=== PATIENT | female | born 1985 | race Asian ===

== ENCOUNTER 2016-10-21 16:14 | Emergency (ER) | payer OTHER ==
[~2016-10-21] VITALS: Wt 64.0 kg
--- NOTE | 2016-10-21 17:51 | RADRPT ---
PROCEDURE: OBSTETRICAL ULTRASOUND WITH ENDOVAGINAL IMAGES CLINICAL INDICATION: Vaginal Bleed () TECHNIQUE: Multiple sonographic images of the pelvis were obtained utilizing a transabdominal and endovaginal technique. The images were reviewed on a PACS workstation. COMPARISON: None. LMP: 07/26/2016 FINDINGS: The uterus measures 11.8 x 5.1 x 7.4 cm. There is a single live intrauterine with heart rate of 86 beats per minute, mean sac diameter of 1.09 cm, yolk sac, and crown-rump length of 0.43 cm which is consistent with a gestatio nal age of 6 weeks, 0 days . The estimated date of delivery by ultrasound is 06/16/2017 . The estimated gestational age by LMP is 12 weeks, 3 days . The estimated date of delivery by LMP is 05/02/2017 . The right ovary measures 4.7 x 3.0 x 3.7 cm. The left ovary measures 3.0 x 1.7 x 2.0 cm. There is no rmal vascular flow in both ovaries. There is a 2.8 cm simple cystic lesion in the right ovary without significant peripheral vascular fl ow. No significant pelvic free fluid is identified. IMPRESSION: Single live intrauterine consistent with a gestational age of 6 weeks, 0 days . The estimated date of delivery is 06/16/2017 . Dating by ultrasound is not consistent with dating by LMP. Low heart rate of 86 beats per minute is likely due to the early nature of the . Att ention on follow-up is recommended. 2.8 cm simple cystic lesion in the right ovary is likely an enlarged follicle. RPTAT: EE Physician Chato Date Time Electronically viewed and signed by Physician Chato on 10/21/2016 17:51 /
[2016-10-21 18:01] LABS: BASOPHILS % 0.3 % (0.0-2.0); EOSINOPHILS # 0.1 10^3/ul (0.0-0.5); EOSINOPHILS % 0.6 % (0.0-7.0); HEMATOCRIT 39.5 % (37.0-47.0); HEMOGLOBIN 13.2 g/dl (12.0-16.0); LYMPHOCYTES # 3.4 10^3/ul (0.8-2.9); MEAN CORPUSCULAR HEMOGLOBIN 28.6 pg (29.0-33.0); MEAN CORPUSCULAR HGB CONC 33.4 g/dl (32.0-37.0); MEAN CORPUSCULAR VOLUME 85.5 fl (82.0-101.0); MEAN PLATELET VOLUME 10.9 fl (7.4-10.4); MONOCYTE # 0.8 10^3/ul (0.3-0.9); MONOCYTES % 6.1 % (0.0-11.0); NEUTROPHILS % 65.6 % (39.0-77.0); PLATELET COUNT 259 10^3/UL (140-415); RED BLOOD COUNT 4.62 10^6/ul (4.20-5.40); RED CELL DISTRIBUTION WIDTH 13.8 % (11.5-14.5); WHITE BLOOD COUNT 12.7 10^3/ul (4.8-10.8)
[2016-10-21 18:08] LABS: ADD UMIC NO; UR ASCORBIC ACID NEGATIVE (NEGATIVE); UR BILIRUBIN (Dip) NEGATIVE (NEGATIVE); UR BLOOD (Dip) NEGATIVE (NEGATIVE); UR CLARITY CLEAR (CLEAR); UR COLOR STRAW (YELLOW); UR GLUCOSE (Dip) NEGATIVE (NEGATIVE); UR KETONES (Dip) NEGATIVE (NEGATIVE); UR LEUKOCYTE ESTERASE (Dip) NEGATIVE Leu/ul (NEGATIVE); UR NITRITE (Dip) NEGATIVE (NEGATIVE); UR SPECIFIC GRAVITY (Dip) 1.004 (1.003-1.030); UR TOTAL PROTEIN (Dip) NEGATIVE (NEGATIVE); UR UROBILINOGEN (Dip) NEGATIVE (NEGATIVE)
--- NOTE | 2016-10-21 19:13 | ERD ---
ER Documentation Chief Complaint Date/Time DATE: 10/21/16 TIME: 19:10 Chief Complaint VAGINAL SPOTTING, ONSET TODAY, PT 8 WKS PG HPI This is a 31-year-old female presents to the ER with vaginal spotting that started today. Patient states she is approximately 8 weeks . She does admit to some mild pelvic cramping. She denies any vaginal discharge. She denies any urinary frequency or dysuria. A1. ROS 12 point review of systems was done, all negative except per HPI. Allergies Allergies: Coded Allergies: No Known Allergy (Unverified , 10/21/16) PMhx/Soc Medical and Surgical Hx: pt denies Medical Hx, pt denies Surgical Hx Hx Alcohol Use: No Hx Substance Use: No Hx Tobacco Use: No Smoking Status: Never smoker Physical Exam Vitals Vital Signs Date Time Temp Pulse Resp B/P Pulse Ox O2 Delivery O2 Flow Rate FiO2 10/21/16 16:23 98.5 64 17 104/61 99 Physical Exam GENERAL: The patient is well developed and appropriate for usual state of health , in no apparent distress. HEENT: Atraumatic. CHEST: Clear to auscultation bilaterally. There are no rales, wheezes or rhonchi. HEART: Regular rate and rhythm. No murmurs, clicks, rubs or gallops. ABDOMEN: Soft, nontender and nondistended. Good bowel sounds. No rebound or guarding. No gross peritonitis. No gross organomegaly or masses. No Mann sign or McBurney point tenderness. BACK: No midline or flank tenderness. NEURO: Alert and oriented. Result Diagram: 10/21/16 1752 Results 24 hrs Laboratory Tests Test 10/21/16 17:52 White Blood Count 12.710^3/ul Red Blood Count 4.6210^6/ul Hemoglobin 13.2g/dl Hematocrit 39.5% Mean Corpuscular Volume 85.5fl Mean Corpuscular Hemoglobin 28.6pg Mean Corpuscular Hemoglobin Concent 33.4g/dl Red Cell Distribution Width 13.8% Platelet Count 93755^3/UL Mean Platelet Volume 10.9fl Neutrophils % 65.6% Lymphocytes % 27.0% Monocytes % 6.1% Eosinophils % 0.6% Basophils % 0.3% Nucleated Red Blood Cells % 0.0/100WBC Neutrophils # (Manual) 810^3/ul Lymphocytes # 3.410^3/ul Monocytes # 0.810^3/ul Eosinophils # 0.110^3/ul Basophils # 0.010^3/ul Nucleated Red Blood Cells # 0.010^3/ul Urine Color STRAW Urine Clarity CLEAR Urine pH 7.0 Urine Specific [place] 1.004 Urine Ketones NEGATIVEmg/dL Urine Nitrite NEGATIVEmg/dL Urine Bilirubin NEGATIVEmg/dL Urine Urobilinogen NEGATIVEmg/dL Urine Leukocyte Esterase NEGATIVELeu/ul Urine Hemoglobin NEGATIVEmg/dL Urine Glucose NEGATIVEmg/dL Urine Total Protein NEGATIVEmg/dl Beta HCG, Quantitative 36604.0mIU/ml Procedures/MDM Differential diagnosis: Threatened , missed , incomplete , ectopic , molar , UTI, pyelonephritis. This is a 31 -year-old female presents to the ER with vaginal spotting. At this time patient 's ultrasound is normal. Suspicion for urinary tract infection or pyelonephritis is low. Suspicion for molar is low. I do not believe patient having an ectopic if she does have an intrauterine at this time. Patient needs to follow-up with her primary care doctor within 1- 2 days or return to ER sooner if symptoms worsen. I did explain to patient that the baby's heart rate was a little bit lower, which radiologist wrote may be okay for a 6 week . I shared my medical patient and her they both understand and agree with plan. Departure Diagnosis: Primary Impression: Vaginal bleeding in patient at less than 20 weeks ges... Condition: Stable Patient Instructions: Bleeding During Early Referrals: ERON BHAKTA (PCP) Additional Instructions: Call your primary care doctor TOMORROW for an appointment during the next 1-2 days.See the doctor sooner or return here if your condition worsens before your appointment time. EMIL CHAVIRA Oct 21, 2016 19:13
[2016-10-21 19:18] VITALS: BP 98/54; PULSE 78; RESP 18; TEMP 98
== END 2016-10-21 19:19 | disposition home or self-care (01) ==
LOC: FTE 16:14
DX: O20.9 Hemorrhage in early pregnancy, unspecified (principal); R10.2 Pelvic and perineal pain; Z3A.01 Less than 8 weeks gestation of pregnancy
CPT/HCPCS: 76801; 76817; 81003; 84702; 85025; 86900; 86901

== ENCOUNTER 2016-11-14 09:34 | Emergency (ER) | payer OTHER ==
[~2016-11-14] VITALS: Wt 70.0 kg
[2016-11-14 11:12] LABS: BASOPHIL # 0.1 10^3/ul (0.0-0.1); BASOPHILS % 0.4 % (0.0-2.0); EOSINOPHILS # 0.5 10^3/ul (0.0-0.5); EOSINOPHILS % 3.5 % (0.0-7.0); HEMATOCRIT 39.5 % (37.0-47.0); HEMOGLOBIN 13.1 g/dl (12.0-16.0); LYMPHOCYTES # 3.8 10^3/ul (0.8-2.9); LYMPHOCYTES % 28.1 % (15.0-51.0); MEAN CORPUSCULAR HGB CONC 33.2 g/dl (32.0-37.0); MEAN CORPUSCULAR VOLUME 87.4 fl (82.0-101.0); MEAN PLATELET VOLUME 10.4 fl (7.4-10.4); MONOCYTE # 0.8 10^3/ul (0.3-0.9); MONOCYTES % 6.1 % (0.0-11.0); NEUTROPHILS % 61.4 % (39.0-77.0); PLATELET COUNT 289 10^3/UL (140-415); RED BLOOD COUNT 4.52 10^6/ul (4.20-5.40); RED CELL DISTRIBUTION WIDTH 13.9 % (11.5-14.5); WHITE BLOOD COUNT 13.5 10^3/ul (4.8-10.8)
--- NOTE | 2016-11-14 12:39 | ERD ---
ER Documentation Chief Complaint Date/Time DATE: 11/14/16 TIME: 12:35 Chief Complaint VAG BLEED 9 WKS . NO NAUSEA NO VOMITING. MILD AP HPI This 31-year-old female who is a G2 para 0 presents with vaginal bleeding since this morning. She is approximately 9 weeks by dates. She had a previous ultrasound with intrauterine . She had some heavy bleeding with cramps clots and possible tissue. She denies any fevers, vomiting, chest pain or shortness of breath or dizziness. ROS All systems reviewed and are negative except as per history of present illness. Allergies Allergies: Coded Allergies: No Known Allergy (Unverified , 10/21/16) PMhx/Soc Hx Alcohol Use: No Hx Substance Use: No Hx Tobacco Use: No Physical Exam Vitals Vital Signs Date Time Temp Pulse Resp B/P Pulse Ox O2 Delivery O2 Flow Rate FiO2 11/14/16 09:39 98.3 76 20 111/68 100 Physical Exam Const: []Alert, not ill-appearing per Head: Atraumatic Eyes: Normal Conjunctiva ENT: Normal External Ears, Nose and Mouth. Neck: Full range of motion..~ No meningismus. Resp: Clear to auscultation bilaterally Cardio: Regular rate and rhythm, no murmurs Abd: Soft,Mild suprapubic tenderness. No change McBurney's point no Mann sign non distended. Normal bowel sounds Skin: No petechiae or rashes Back: No midline or flank tenderness Ext: No cyanosis, or edema Neur: Awake and alert Psych: Normal Mood and Affect Result Diagram: 11/14/16 1053 Results 24 hrs Laboratory Tests Test 11/14/16 10:53 White Blood Count 13.510^3/ul Red Blood Count 4.5210^6/ul Hemoglobin 13.1g/dl Hematocrit 39.5% Mean Corpuscular Volume 87.4fl Mean Corpuscular Hemoglobin 29.0pg Mean Corpuscular Hemoglobin Concent 33.2g/dl Red Cell Distribution Width 13.9% Platelet Count 88695^3/UL Mean Platelet Volume 10.4fl Neutrophils % 61.4% Lymphocytes % 28.1% Monocytes % 6.1% Eosinophils % 3.5% Basophils % 0.4% Nucleated Red Blood Cells % 0.0/100WBC Neutrophils # (Manual) 8.310^3/ul Lymphocytes # 3.810^3/ul Monocytes # 0.810^3/ul Eosinophils # 0.510^3/ul Basophils # 0.110^3/ul Nucleated Red Blood Cells # 0.010^3/ul Beta HCG, Quantitative 1986.0mIU/ml Procedures/MDM . HCG is 1986. CBC is normal. Shows slight leukocytosis, otherwise Normal.Pelvic ultrasound shows no appreciable intrauterine . There are small ovarian cyst seen on prior ultrasound. Patient had a large amount of tissue apparently while she was in the bathroom and pain mostly resolved. Patient presents with vaginal bleeding for 1 day which is improving with the passage of tissue. I suspect she has a complete miscarriage but given her persistent elevated hCG 1 day of symptoms I am recommending a 48 hour recheck of hCG and return precautions. Current signs and symptoms do not suggest ectopic , appendicitis, additional complications. Departure Diagnosis: Primary Impression: Vaginal bleeding in patient at less than 20 weeks ges... Condition: Stable Patient Instructions: Bleeding During Early , Miscarriage, Spontaneous (Completed) Additional Instructions: Likely complete miscarriage although recommend repeat blood work in 48 hours. Recheck sooner for fevers, vomiting, new symptoms. Recheck otherwise with primary doctor and OB. ALEX MARTIN MD Nov 14, 2016 12:39
--- NOTE | 2016-11-14 12:47 | RADRPT ---
PROCEDURE: OBSTETRICAL ULTRASOUND WITH ENDOVAGINAL IMAGES CLINICAL INDICATION: Vaginal Bleed () TECHNIQUE: Multiple sonographic images of the pelvis were obtained utilizing a transabdominal and endovaginal technique. The images were reviewed on a PACS workstation. COMPARISON: Obstetrical ultrasound from 10/21/2016 LMP: 07/26/2016 Gestational age by LMP: 15 weeks, 6 days FINDINGS: The uterus measures 10.5 x 5.8 x 8.1 cm. The endometrial echo complex measures 16 mm in thickness. There is no evidence of intrauterine seen previously. There is no evidence of increased va scularity in the endometrium to suggest retained products of conception. The right ovary measures 5.0 x 3.2 x 2.6 cm. The left ovary is not visualized. There is normal vascu lar flow in the right ovary. No significant ovarian lesions are seen. No significant pelvic free fluid is identified. IMPRESSION: The intrauterine seen previously is no longer visualized. There is no evidence of increase d vascularity in the endometrium to suggest retained products of conception. Nonvisualization of the left ovary. These findings were discussed with Justin Newell (N) over the phone on 11/14/2016 at 12:46 PM . RPTAT: EE Physician Chato Date Time Electronically viewed and signed by Physician Chato on 11/14/2016 12:47 /
[2016-11-14 13:09] VITALS: BP 117/72; PULSE 67; RESP 16; TEMP 98.6
== END 2016-11-14 13:20 | disposition home or self-care (01) ==
LOC: FTE 09:34
DX: O20.9 Hemorrhage in early pregnancy, unspecified (principal); Z3A.09 9 weeks gestation of pregnancy
CPT/HCPCS: 36415; 76801; 76817; 84702; 85025; 86900; 86901

== ENCOUNTER 2018-02-12 17:47 | Emergency (ER) | END 2018-02-12 22:16 | disposition home or self-care (01) ==

== ENCOUNTER 2018-02-25 14:23 | Emergency (ER) | END 2018-02-25 18:18 | disposition home or self-care (01) ==